=== PATIENT | female | born 1955 | race African-American/Black ===

== ENCOUNTER 2017-03-14 18:48 | Emergency (ER) | payer OTHER ==
[~2017-03-14] VITALS: Ht 167.6 cm; Wt 90.7 kg
[~2017-03-14 18:48] MED LIST: ALPR1TAB2 PO; AMLO10TA4 PO; CLON0.2T PO
[2017-03-14 20:00] VITALS: BP 144/75
[2017-03-14] MEDS ORDERED: ALPRAZolam 0.5 MG TABLET PO ONE (20:00)
--- NOTE | 2017-03-14 20:09 | PHYS DOC ---
Past Medical History Past Medical History: Anxiety, Hypertension, Other Additional Past Medical Histor: "some kind of cancer" Past Surgical History: No Surgical History Alcohol Use: None Drug Use: Marijuana Adult General Chief Complaint Chief Complaint: SHORTNESS OF BREATH HPI HPI Patient is a 61 year old female who presents with complaint of coughing, shortness of breath, and anxiety. Patient states that she was evaluated 2 weeks ago by her primary physician and was started on antibiotic therapy at that time. Patient states that this did not help with her symptoms and she was seen one week ago at the emergency department at [facility]. Patient was diagnosed with acute bronchitis at that time and was started on antibiotic in prednisone therapy. The patient states that her symptoms have improved from onset, however patient states that she has still noticed occasional lingering cough productive of sputum. Patient states that this has caused her to become very anxious. Patient states that she is treated for anxiety disorder and is prescribed Xanax by her primary doctor. Patient states that she is currently out of this medication. Patient has an appointment in the next 3 days with her primary doctor as she will not refill her medication until she has been seen. Patient states that she has been having difficulty sleeping because of her anxiety. Patient denies any chest pain or shortness of breath currently. Patient also denies abdominal pain, fever, or weakness. Patient also has history of smoking and states that she has been smoking occasionally over the past few days while taking treatment. Review of Systems Review of Systems Constitutional: Anxiety, denies fever or chills [] Eyes: Denies change in visual acuity, redness, or eye pain [] HENT: Denies nasal congestion or sore throat [] Respiratory: Cough [] Cardiovascular: Denies chest pain or edema [] GI: Denies abdominal pain, nausea, vomiting, bloody stools or diarrhea [] : Denies dysuria or hematuria [] Musculoskeletal: Denies back pain or joint pain [] Integument: Denies rash or skin lesions [] Neurologic: Denies headache, focal weakness or sensory changes [] Current Medications Current Medications Current Medications Medications (Trade) Dose Ordered Sig/Brandee Start Time Stop Time Status Last Admin Dose Admin Alprazolam (Xanax) 1 mg 1X ONCE 03/14/17 20:00 03/14/17 20:01 DC Allergies Allergies Allergies Coded Allergies Type Severity Reaction Last Updated Verified No Known Drug Allergies 02/24/14 No Physical Exam Physical Exam Constitutional: Alert, afebrile, appears mildly anxious. [] HENT: Normocephalic, atraumatic, bilateral external ears normal, oropharynx moist, no oral exudates, nose normal. [] Eyes: PERRLA, EOMI, conjunctiva normal, no discharge. [] Neck: Normal range of motion, no tenderness, supple, no stridor. [] Cardiovascular:Heart rate regular rhythm, no murmur [] Lungs & Thorax: Bilateral breath sounds clear to auscultation [] Abdomen: Bowel sounds normal, soft, no tenderness, no masses, no pulsatile masses. [] Skin: Warm, dry, no erythema, no rash. [] Back: No tenderness, no CVA tenderness. [] Extremities: No tenderness, no cyanosis, no clubbing, ROM intact, no edema. [] Neurologic: Alert and oriented X 3, normal motor function, normal sensory function, no focal deficits noted. [] Current Patient Data Vital Signs Vital Signs Date Time Temp Pulse Resp B/P (MAP) Pulse Ox O2 Delivery O2 Flow Rate FiO2 03/14/17 19:06 98.7 73 18 171/91 (117) 97 Room Air 98.7 EKG EKG Interpreted by me: Heart rate 61, sinus rhythm, normal intervals, normal axis, no acute ST/T-wave abnormalities present [] Radiology/Procedures Radiology/Procedures Not performed [] Course & Med Decision Making Course & Med Decision Making Pertinent Labs and Imaging studies reviewed. (See chart for details) The patient's exam is unremarkable at this time. The patient's bronchitis appears to be resolving with the treatment that was given. The patient's occasional cough may be related to residual sequelae from acute bronchitis and I expanded the patient that her smoking may also be exacerbating these symptoms. The patient was given Xanax in the emergency department for treatment of her acute anxiety. I have deferred the patient's prescription medication to her primary doctor who is managing the patient's Xanax. Patient voiced understanding of this. Advised patient to call tomorrow morning to see if she can schedule an earlier appointment within the next 3 days for reevaluation. Advised return emergency department for any worsening symptoms. Patient voiced understanding and in agreement with treatment plan. Dragon Disclaimer Dragon Disclaimer This electronic medical record was generated, in whole or in part, using a voice recognition dictation system. Departure Departure Impression: Primary Impression: Anxiety Disposition: 01 HOME, SELF-CARE Condition: IMPROVED Referrals: SARAH RAPP MD (PCP) Patient Instructions: Anxiety and Panic Attacks Additional Instructions: Call your primary doctor tomorrow morning to schedule follow-up in the next 2 days for reevaluation. Return to the emergency department for any worsening symptoms. MONY WOODS MD Mar 14, 2017 20:09
--- NOTE | 2017-03-15 06:24 | EKG ---
[facility] [address] [place] [address] Test Date: 2017-03-14 Test Time: 20:03:07 Pat Name: RUTH KAMARA Department: Room: Gender: F Erp Specialist: : 1955 Requested By: MONY WOODS Order Number: [id number] Reading MD: Hui Hopkins Measurements Intervals [place] Rate: 61 P: 6 IL: 160 QRS: 15 QRSD: 92 T: 37 QT: 376 QTc: 380 Interpretive Statements SINUS RHYTHM NORMAL ECG Electronically Signed On 03-17-2017 21:08:34 CDT by Hui Hopkins
== END 2017-03-14 20:35 | disposition home or self-care (01) ==
LOC: ER 18:48
DX: F41.9 Anxiety disorder, unspecified (principal); R05 Cough; I10 Essential (primary) hypertension; F12.10 Cannabis abuse, uncomplicated; Z87.891 Personal history of nicotine dependence
CPT/HCPCS: 36415; 93005; 99284-25

== ENCOUNTER 2017-06-21 17:43 | Emergency (ER) | payer SELFPAY ==
[~2017-06-21] VITALS: Ht 172.7 cm; Wt 90.7 kg
[2017-06-21 18:04] VITALS: BP 117/71
[2017-06-21] MEDS ORDERED: SILV20CR14 TP (18:30)
[2017-06-21] MEDS ORDERED: TRAM-48 PO (18:30)
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
[2017-06-21] MEDS ORDERED: DIPHTH,PERTUSS(ACELL),TET TOX 0.5 ML DISP.SYRIN. VAX IM ONE (18:45)
[2017-06-21] MEDS ORDERED: HYDROcodone/APAP 5/325MG 1 TAB TABLET PO ONE (18:45)
== END 2017-06-21 18:42 | disposition home or self-care (01) ==
LOC: ER 17:43
DX: T24.112A Burn of first degree of left thigh, initial encounter (principal); T31.0 Burns involving less than 10% of body surface; F41.9 Anxiety disorder, unspecified; I10 Essential (primary) hypertension; X10.0XXA Contact with hot drinks, initial encounter; Y93.89 Activity, other specified; Y92.89 Other specified places as the place of occurrence of the external cause; Y99.8 Other external cause status
CPT/HCPCS: 90471; 90715; 99283-25

== ENCOUNTER 2017-07-03 16:00 | Emergency (ER) | payer OTHER ==
[~2017-07-03] VITALS: Ht 167.6 cm; Wt 93.4 kg
[~2017-07-03 16:00] MED LIST changes: +SILV20CR14 TP; +TRAM-48 PO
[2017-07-03 16:39] VITALS: BP 124/58
[2017-07-03] MEDS ORDERED: silver sulfADIAZINE 1% CREAM 25GM TUBE. TP ONE (16:45)
[2017-07-03] MEDS ORDERED: SILV20CR14 TP (17:27)
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
== END 2017-07-03 17:47 | disposition home or self-care (01) ==
LOC: ER 16:00
DX: T23.101A Burn of first degree of right hand, unspecified site, initial encounter (principal); E11.9 Type 2 diabetes mellitus without complications; I10 Essential (primary) hypertension; F31.9 Bipolar disorder, unspecified; X08.8XXA Exposure to other specified smoke, fire and flames, initial encounter; Y93.89 Activity, other specified; Y99.8 Other external cause status; Y92.89 Other specified places as the place of occurrence of the external cause
CPT/HCPCS: 16020; 99284-25

== ENCOUNTER 2017-09-20 15:48 | Emergency (ER) | payer OTHER | END 2017-09-20 16:49 | disposition home or self-care (01) | LOC: ER 15:48 | DX: N61.1 Abscess of the breast and nipple (principal); Z76.0 Encounter for issue of repeat prescription; I10 Essential (primary) hypertension; E11.9 Type 2 diabetes mellitus without complications; F31.9 Bipolar disorder, unspecified; F12.10 Cannabis abuse, uncomplicated | CPT/HCPCS: 99283 ==

== ENCOUNTER 2019-05-27 01:28 | Emergency (ER) | payer OTHER ==
[~2019-05-27] VITALS: Ht 167.6 cm; Wt 98.0 kg
[~2019-05-27 01:28] MED LIST changes: +CLON0.1T PO; +SULF1TAB24 PO
[2019-05-27] MEDS ORDERED: methylPREDNISolone SOD SUCC PF 125 MG/2 ML VIAL. IM ONE (02:00)
[2019-05-27] MEDS ORDERED: IPRATRPIUM/ALBUTEROL 0.5/2.5MG 3 ML NEBU. NEB ONE (02:00)
--- NOTE | 2019-05-27 02:06 | PHYS DOC ---
Past Medical History Past Medical History: Anxiety, Bipolar, Diabetes-Type II, Hypertension, Other Additional Past Medical Histor: "some kind of cancer" Past Surgical History: No Surgical History Alcohol Use: None Drug Use: Marijuana Adult General Chief Complaint Chief Complaint: SHORTNESS OF BREATH HPI HPI Patient is a 64-year-old smoker who presents with approximately a 5 hour history of sore and scratchy throat, cough congestion. She states she was talking to her daughter in [place] on the phone and she started coughing and almost immediately thereafter she began to cough. She is concerned that she has an infectious process going on. She denies any fever chills or sweats. She does state that she continues to smoke.[] Review of Systems Review of Systems Constitutional: Denies fever or chills [] Eyes: Denies change in visual acuity, redness, or eye pain [] HENT: Reports sore throat[] Respiratory: Reports cough and congestion[] Cardiovascular: No additional information not addressed in HPI [] GI: Denies abdominal pain, nausea, vomiting, bloody stools or diarrhea [] : Denies dysuria or hematuria [] Musculoskeletal: Denies back pain or joint pain [] Integument: Denies rash or skin lesions [] Neurologic: Denies headache, focal weakness or sensory changes [] Endocrine: Denies polyuria or polydipsia [] All other systems were reviewed and found to be within normal limits, except as documented in this note. Current Medications Current Medications Current Medications Medications (Trade) Dose Ordered Sig/Brandee Start Time Stop Time Status Last Admin Dose Admin Acetaminophen (Tylenol) 1,000 mg 1X ONCE 05/27/19 02:15 05/27/19 02:16 UNV Albuterol/ Ipratropium (Duoneb) 6 ml 1X ONCE 05/27/19 02:00 05/27/19 02:01 DC 05/27/19 01:58 6 ML Methylprednisolone Sodium Succinate (SOLU-Medrol 125MG VIAL) 125 mg 1X ONCE 05/27/19 02:00 05/27/19 02:01 DC Allergies Allergies Allergies Coded Allergies Type Severity Reaction Last Updated Verified No Known Drug Allergies 02/24/14 No Physical Exam Physical Exam Constitutional: Well developed, well nourished, mild distress, non-toxic appearance. [] HENT: Normocephalic, atraumatic, bilateral external ears normal, oropharynx moist, no oral exudates, nose normal. [] Eyes: PERRLA, EOMI, conjunctiva normal, no discharge. [] Neck: Normal range of motion, no tenderness, supple, no stridor. [] Cardiovascular:Heart rate regular rhythm, no murmur [] Lungs & Thorax: Scattered mild wheezes throughout both lungs[] Abdomen: Bowel sounds normal, soft, no tenderness, no masses, no pulsatile masses. [] Skin: Warm, dry, no erythema, no rash. [] Back: No tenderness, no CVA tenderness. [] Extremities: No tenderness, no cyanosis, no clubbing, ROM intact, no edema. [] Neurologic: Alert and oriented X 3, normal motor function, normal sensory function, no focal deficits noted. [] Psychologic: Extremely anxious. [] Current Patient Data Vital Signs Vital Signs Date Time Temp Pulse Resp B/P (MAP) Pulse Ox O2 Delivery O2 Flow Rate FiO2 05/27/19 01:58 96 Room Air 05/27/19 01:31 98.4 81 18 142/74 (96) 98.4 EKG EKG [] Radiology/Procedures Radiology/Procedures [] Impressions: Chest x-ray: Negative exam as interpreted by me Course & Med Decision Making Course & Med Decision Making Pertinent Labs and Imaging studies reviewed. (See chart for details) [ED course: Evaluation reveals a 64-year-old female with wheezing and cough. Patient was given albuterol and ipratropium neb along with 125 Solu-Medrol with excellent relief of her symptoms.] Dragon Disclaimer Dragon Disclaimer This electronic medical record was generated, in whole or in part, using a voice recognition dictation system. Departure Departure Impression: Primary Impression: Bronchitis Disposition: HOME, SELF-CARE Condition: IMPROVED Patient Instructions: Acute Bronchitis Additional Instructions: Follow with her primary care physician this week for recheck. Please do not smoke cigarettes. Return to the emergency department with any new or concerning symptoms Scripts Benzonatate (TESSALON PERLE) 100 Mg Capsule 1 CAP PO TID, #30 CAP Prov: JOSSELYN HESTER DO 05/27/19 Albuterol Sulfate (PROVENTIL HFA INHALER) 6.7 Gm Hfa.aer.ad 2 PUFF IH PRN Q4HRS PRN for FOR ASTHMA, #1 INHALER 0 Refills Prov: JOSSELYN HESTER DO 05/27/19 Methylprednisolone (MEDROL) 4 Mg Tab.ds.pk 1 PKG PO UD for arthritis, #1 PKG Prov: JOSSELYN HESTER DO 05/27/19 JOSSELYN HESTER DO May 27, 2019 02:06
[2019-05-27] MEDS ORDERED: ACETAMINOPHEN 500 MG TABLET PO ONE (02:15)
[2019-05-27] MEDS ORDERED: BENZ100C PO (02:27)
[2019-05-27] MEDS ORDERED: ALBU2.5V8 IH (02:27)
[2019-05-27] MEDS ORDERED: METH4TAB2 PO (02:27)
--- NOTE | 2019-05-27 02:33 | RAD ---
CHEST AP ONLY INDICATION: Cough. COMPARISON STUDY: 01/09/2013. FINDINGS: Lordotic positioning. Lungs: Normal lung volume. No pulmonary mass or consolidation. The tracheobronchial tree and hilar structures are normal. Pleura: No pleural effusion or pneumothorax. Heart and Mediastinum: The cardiomediastinal silhouette is normal. The great vessels of the thorax are normal. Bones and Soft Tissues: The bones and soft tissues are within normal limits. IMPRESSION: No acute cardiopulmonary process. Electronically signed by: Willis Rebolledo MD (05/27/2019 2:30 AM) [facility]
[2019-05-27 02:38] VITALS: BP 120/59
== END 2019-05-27 03:12 | disposition home or self-care (01) ==
LOC: ER 01:28
DX: J40 Bronchitis, not specified as acute or chronic (principal); F41.9 Anxiety disorder, unspecified; F31.9 Bipolar disorder, unspecified; E11.9 Type 2 diabetes mellitus without complications; I10 Essential (primary) hypertension
CPT/HCPCS: 71045; 87070; 87880; 94640; 96372; 99285; J2930; J7620